=== PATIENT | female | born 1970 | race Caucasian/White ===

== ENCOUNTER 2018-06-02 09:34 | Outpatient (CLI) | payer OTHER, SELFPAY ==
--- NOTE | 2018-06-02 09:28 | DI.RAD_ITS ---
SYMPTOM/DIAGNOSIS: ACUTE RT WRIST PAIN RIGHT WRIST: Three views. No acute fracture or dislocation is identified. The joint spaces appear well maintained. The soft tissues are grossly unremarkable. IMPRESSION: No acute abnormality.
== END 2018-06-02 09:54 ==
PROVIDERS: PCP Nurse Practitioner Adult Health; Visit Provider Student in an Organized Health Care Education/Training Program
DX: M25.531 Pain in right wrist (principal)
CPT/HCPCS: 73110

== ENCOUNTER 2018-07-30 10:10 | Outpatient (REF) | payer OTHER, SELFPAY ==
--- NOTE | 2018-07-30 10:00 | PAPFT_PTH ---
PATIENT: Kya Lopez LOC: [facility] [place] U#:[id number] AGE/SX: 48/F ROOM: RE07/30/[address]: Sofy Pascual APRN : 1970 BED: DIS: 07/30/2018 SPEC #: [id number] RECD: 07/30/18 13:05 STATUS: RONNA RERadha #: [id number] JAZMIN: 07/30/18 10:[address]: Sofy Pascual DEPT: [facility] Cytology RECD BY: Delfin Cooper Tissues: 1 - CX/ENDOCX FOR PAP SMEARS Procedures: PAP THIN PREP/UVM Screening HPV DNA PROBE Comments: [id number]
== END 2018-07-30 10:30 ==
LOC: LBN 10:10
PROVIDERS: PCP Nurse Practitioner Adult Health; Visit Provider Nurse Practitioner Adult Health
DX: Z12.4 Encounter for screening for malignant neoplasm of cervix (principal); Z11.51 Encounter for screening for human papillomavirus (HPV)
CPT/HCPCS: 88142; 87624

== ENCOUNTER 2018-08-03 00:59 | Outpatient (CLI) | payer OTHER, SELFPAY ==
--- NOTE | 2018-08-03 13:00 | DI.MAMMO_ITS ---
SYMPTOMS/DIAGNOSIS: SCREENING, Z12.31 MAMMOGRAMS: Mammograms were interpreted according to the usual protocol including computer analysis with CAD system, tomosynthesis and C view imaging. Comparison is with the prior examinations. No suspicious masses or microcalcifications are seen. There is no definite evidence of malignancy. IMPRESSION: Negative mammogram. Routine screening is recommended. Category 1, breast density C. MQSA ASSESSMENT OF FINDINGS: Negative. Category 1. Patient will receive a letter notifying them of these results. Bi-RADS category C. The breasts are heterogeneously dense, which may obscure small masses.
== END 2018-08-03 01:19 ==
PROVIDERS: PCP Nurse Practitioner Adult Health; Visit Provider Nurse Practitioner Adult Health
DX: Z12.31 Encounter for screening mammogram for malignant neoplasm of breast (principal)
CPT/HCPCS: 77063; 77067

== ENCOUNTER 2018-08-04 01:15 | Outpatient (CLI) | payer OTHER, SELFPAY ==
--- NOTE | 2018-08-04 08:00 | DI.US_ITS ---
SYMPTOM/DIAGNOSIS: F/U MULTI NODULAR GOITER, E04.2 THYROID ULTRASOUND: Comparison is made with 06/17/17 and 07/16/17. The right lobe measures 4.7 by 2.6 by 1.5 cm. There is again seen a thick walled, complex, avascular nodule in the lower pole measuring 2.1 by 1.9 by 2.8 cm. This compares with 2.3 by 2.2 by 1.5 cm. There are two adjacent nodules seen in the mid pole of the right lobe of the thyroid gland, the larger measuring .9 by .6 by .6 cm. This is stable compared to 06/17/17. The second nodule measures 0.7 by 0.5 by 0.7 cm. It was not identified on the examination from 06/17/17. The left lobe measures 4.2 by 1.8 by 1.4 cm. It is homogeneous. No thyroid nodule is seen. The previously noted nodule seen on 06/17/17 is not identified on the current examination. The isthmus is within normal limits at .2 cm. IMPRESSION: Slight increase in size of the right lower lobe thyroid nodule since 06/17/17. Two solid nodules seen in the mid pole of the right lobe as described above.
== END 2018-08-04 01:35 ==
PROVIDERS: PCP Nurse Practitioner Adult Health; Visit Provider Otolaryngology
DX: E04.2 Nontoxic multinodular goiter (principal)
CPT/HCPCS: 76536

== ENCOUNTER 2018-08-12 12:01 | Outpatient (CLI) | payer OTHER, SELFPAY ==
[2018-08-12 13:15] LABS: TSH (W/Ref FT4) 0.04 uIU/mL (0.358-3.74)
[2018-08-12 13:53] LABS: FREE T4 1.17 ng/dL (0.76-1.46)
== END 2018-08-12 12:21 ==
PROVIDERS: PCP Nurse Practitioner Adult Health; Visit Provider Otolaryngology
DX: E04.2 Nontoxic multinodular goiter (principal)
CPT/HCPCS: 36415; 84439; 84443

== ENCOUNTER 2019-02-03 14:09 | Outpatient (CLI) | payer OTHER, SELFPAY ==
[2019-02-03 17:35] LABS: TSH (W/Ref FT4) 1.78 uIU/mL (0.36-3.74)
== END 2019-02-03 14:29 ==
PROVIDERS: PCP Nurse Practitioner Adult Health; Visit Provider Nurse Practitioner Adult Health
DX: E04.1 Nontoxic single thyroid nodule (principal); E04.2 Nontoxic multinodular goiter
CPT/HCPCS: 36415; 84443

== ENCOUNTER 2019-05-30 13:19 | Outpatient (REF) | payer OTHER, SELFPAY ==
--- NOTE | 2019-05-30 11:30 | ENDOMET_PTH ---
PATIENT: Kya Lopez LOC: [facility] U#:[id number] AGE/SX: 49/F ROOM: RE05/30/[address]: Yusef Moya MD : 1970 BED: DIS: 05/30/2019 SPEC #: [id number] RECD: 05/30/19 18:03 STATUS: RONNA RERadha #: [id number] JAZMIN: 05/30/19 11:[address]: Yusef Moya DEPT: Surgical Specimen RECD BY: Cecy Combs ENTERED: 05/30/19 18:03 SP TYPE: Endomet OTHR DR: Sofy Pascual APRN Tissues: 1 - ENDOMETRIUM BX/MARY Procedures: GROSS AND MICRO LEVEL 4 Comments: [id number]
== END 2019-05-30 13:39 ==
LOC: LBN 13:19
PROVIDERS: PCP Nurse Practitioner Adult Health; Visit Provider Obstetrics & Gynecology
DX: N85.01 Benign endometrial hyperplasia (principal); N83.8 Other noninflammatory disorders of ovary, fallopian tube and broad ligament; N93.8 Other specified abnormal uterine and vaginal bleeding
CPT/HCPCS: 88305

== ENCOUNTER 2019-06-02 02:47 | Outpatient (CLI) | payer OTHER, SELFPAY ==
--- NOTE | 2019-06-02 08:40 | DI.US_ITS ---
EXAM: US PELVIS AND TRANSVAGINAL CLINICAL HISTORY: Menorrhagia,N92.0 TECHNIQUE: Transabdominal and transvaginal exams were performed. COMPARISON: 11/22/15 US PELVIS AND TRANSVAGINAL FINDINGS: The uterus measures 7.8 x 4.1 x 3.9 cm. There is a question of a small fibroid near the anterior fund us. Nabothian cyst is noted in the cervix. The endometrial stripe measures 4 millimeters in thickness . No focal endometrial abnormality is seen. Small follicles are seen in both ovaries. No suspicious m asses or evidence of torsion. There is no evidence of hydronephrosis or free fluid. The bladder is un remarkable. IMPRESSION: Question of a small fundal fibroid. No visible endometrial abnormality. Ovaries are within normal l imits in appearance. DATA REPOSITORY:
== END 2019-06-02 03:07 ==
PROVIDERS: PCP Nurse Practitioner Adult Health; Visit Provider Nurse Practitioner Family
DX: N92.0 Excessive and frequent menstruation with regular cycle (principal); D25.9 Leiomyoma of uterus, unspecified
CPT/HCPCS: 76830; 76856

== ENCOUNTER 2019-10-20 21:11 | Emergency (ER) | payer OTHER, SELFPAY ==
[2019-10-20 21:15] VITALS: BP 151/88; PULSE 95; RESP 16; TEMP 36.4; O2SAT 99
--- NOTE | 2019-10-20 21:16 | ED.GENADUL_ITS ---
Discharge Plan Disposition Patient Disposition: HOME Condition: Good Discharge Details Chief Complaint: Urinary Clinical Impression: UTI (urinary tract infection) Primary Care Provider: Sofy Pascual ED Provider: El Rutledge Cornell Meds and New Rx's Prescriptions: New phenazopyridine 100 mg tablet 100 mg PO TID Qty: 4 RF: 0 nitrofurantoin macrocrystal 100 mg capsule 100 mg PO BID Qty: 8 RF: 0 Continued bupropion HCl 300 mg tablet extended release 24 hr 300 mg PO QAM Qty: 90 RF: 3 melatonin 3 mg tablet 6 mg PO HS PRNRF: 0 acetazolamide 500 mg capsule, extended release 500 mg PO DAILY Qty: 90 RF: 3 trazodone 50 mg tablet 50 mg PO HS PRN Qty: 90 RF: 3 clobetasol 0.05 % ointment 1 applic TP DAILY PRN (Reason: lichen) Qty: 15 RF: 0 fluticasone propionate [Flonase Allergy Relief] 50 mcg/actuation spray,suspension 2 spray MARY DAILY PRN (Reason: allergy symptoms) Qty: 9.9 RF: 2 sumatriptan succinate 100 mg tablet 100 mg PO ONCE Qty: 27 RF: 3 cyclobenzaprine 5 mg tablet 5 mg PO QHS PRN (Reason: muscle spasm) Qty: 30 RF: 5 ibuprofen 800 MG tablet 800 mg PO TID PRN PRNQty: 30 RF: 0 ranitidine HCl [Zantac 75] 75 MG tablet 75 mg PO HS RF: 0 Discharge Instructions Instructions: Urinary Tract Infection in Women (ED) Additional Instructions: Take Pyridium to treat the symptoms of frequency and urgency. Antibiotic as directed for 5 days. Follow-up with primary care next week if not better. Return to ED for back pain, vomiting, spiking fevers, other concerns. Referrals: Sofy Pascual, BEVERAGE SPECIALIST [Primary Care Provider] - Medical Decision Making Patient presenting with urinary tract symptoms. She looks well. She has no back pain, vomiting, fever. Urine dip positive for leukocytes and blood. Micro with red cells and white cells. Will treat with Pyridium and Macrobid. Follow- up with primary care next week if not better. Return to ED for back pain, vomiting, fever, worsening abdominal pain. Lab Data Lab results reviewed: Yes I reviewed the patient's lab results. HPI General Mode of arrival: ambulatory . Date/Time Provider Initiated Documentation: 10/20/19 21:15 . Limitations to Documentation: no limitations . Information obtained by: patient and RN notes reviewed . HPI Narrative: Patient presents to ED with urinary symptoms that she first noticed yesterday morning. Unable to contact primary care today because she was in conference all day. Tonight is having significant frequency, urgency, dysuria. She has not noticed hematuria. She has no back or flank pain. She does have suprapubic discomfort. She denies fever or chills. Related Data Home Medications Medication Instructions Recorded Confirmed ibuprofen 800 mg PO TID PRN PRN #30 tab 07/02/14 10/20/19 ranitidine HCl [Zantac 75] 75 mg PO HS 07/04/16 10/20/19 trazodone 50 mg tablet 50 mg PO HS PRN #90 tab 11/11/18 10/20/19 acetazolamide 500 mg 500 mg PO DAILY #90 tab-cap 01/12/19 10/20/19 capsule,extended release clobetasol 0.05 % topical ointment 1 applic TP DAILY PRN #15 gm 01/19/19 10/20/19 bupropion HCl 300 mg 24 hr tablet, 300 mg PO QAM #90 tab 02/07/19 10/20/19 extended release melatonin 3 mg tablet 6 mg PO HS PRN tab 08/10/19 10/20/19 fluticasone propionate 50 2 spray MARY DAILY PRN #9.9 ml 09/30/19 10/20/19 mcg/actuation nasal spray,suspension sumatriptan succinate 100 mg tablet 100 mg PO ONCE #27 tab-cap 10/03/19 10/20/19 cyclobenzaprine 5 mg tablet 5 mg PO QHS PRN #30 tab 10/13/19 10/20/19 nitrofurantoin macrocrystal 100 mg PO BID #8 cap 10/20/19 phenazopyridine 100 mg PO TID #4 tab 10/20/19 Previous Rx's Medication Instructions Recorded ibuprofen 800 mg PO TID PRN PRN #30 tab 07/02/14 trazodone 50 mg tablet 50 mg PO HS PRN #90 tab 11/11/18 acetazolamide 500 mg 500 mg PO DAILY #90 tab-cap 01/12/19 capsule,extended release clobetasol 0.05 % topical ointment 1 applic TP DAILY PRN #15 gm 01/19/19 bupropion HCl 300 mg 24 hr tablet, 300 mg PO QAM #90 tab 02/07/19 extended release fluticasone propionate 50 2 spray MARY DAILY PRN #9.9 ml 09/30/19 mcg/actuation nasal spray,suspension sumatriptan succinate 100 mg tablet 100 mg PO ONCE #27 tab-cap 10/03/19 cyclobenzaprine 5 mg tablet 5 mg PO QHS PRN #30 tab 10/13/19 nitrofurantoin macrocrystal 100 mg PO BID #8 cap 10/20/19 phenazopyridine 100 mg PO TID #4 tab 10/20/19 Allergies Allergy/AdvReac Type Severity Reaction Status Date / Time No Known Drug Allergies Allergy Verified 09/22/19 09:35 Review of Systems Narrative: As documented in HPI otherwise negative as below. Const: no fever, chills, weakness GI: no nausea, vomiting, diarrhea PFSH Medical History Depressive disorder (Chronic 11/17/12) Seasonal component (worse in winter) IIH (idiopathic intracranial hypertension) (Chronic 07/12/14) Dx'ed ~2010 ortiz spots in vision--Dr. Purvis of neuro and Dr. Luiz mckeon (fluoroc angiography & retinal scan) Migraine headache without aura (Chronic 10/10/14) Multinodular goiter (Chronic 07/09/17) 06/2012 ultrasound small succentimeter nodules and cysts throughout the thyroid Right hand tendonitis (Resolved) Thyroid nodule (Chronic 05/04/17) 07/16/17 ultasound guided fine needle aspiration: -Benign cystic/hemmorrhagic thyroid follicular nodule. Surgical History Acromioplasty (07/04/16) RT SHOULDER WITH EXCISION CALCIFIC DEPOSIT/DR. 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 [employer] Pets and animals: Yes Pets and animals: dog(s) Sexually active: Yes Current gender identity: female What type of physical activity do you participate in: walking Duration: 30-45 minutes/day Frequency: 3-4 times per week Seatbelt use: always Helmet use: Yes Drive intox or ride w/intox dray driver: No Water heater temp set <120 deg: Yes Working smoke detector in home: Yes Fire extinguisher in home: Yes Carbon monox detector in home: Yes Firearms in home: Yes Firearms unloaded and locked: Yes Do you feel safe at home: Yes Do you feel safe in your relationship?: Yes Victim of physical abuse: No Victim of emotional abuse: No Victim of sexual abuse: No Female Reproductive History Menstrual control method: progestin IUCD (Mirena IUD inserted 07/05/19 Lot # [id number] July 2021) and permanent sterilization (BTL) History History 3 Para 3 Hx # Term Pregnancies Multiple births Hx # Pregnancies Ectopic pregnancies AB induced Hx Number of Living Children AB spontaneous Exam Narrative Exam Narrative: Vitals: Afebrile. Elevated blood pressure otherwise normal vitals and normal ro om air pulse ox. Const: WDWN female in NAD. HEENT: NC/AT. Normal facial exam. Eyes: Normal conjunctiva and sclera. Neck: Supple. Trachea midline. Lungs: Normal respiratory effort. GI: Soft. NT/ND. No guarding or rebound. Back: No CVAT Neuro: A+O x 3. Normal speech, mentation, gait. Cranial nerves II - XII grossly intact. No gross motor or sensory deficit.
[2019-10-20 21:37] LABS: Bilirubin Negative (Negative); Blood Large (Negative); Clarity Sl Cloudy (Clear); Glucose Negative (Negative); Ketones Negative (Negative); Leukocyte Esterase Moderate (Negative); Nitrite Negative (Negative); Specific Gravity 1.015 (1.005-1.025)
[2019-10-20 21:46] LABS: Bacteria Moderate HPF (Negative); C & S Indicated? Yes; Casts Negative LPF (Negative); Crystals Negative HPF (Negative); Epithelial Cells Few HPF (Negative); Mucus Negative (Negative); Other Cells Few Renal (Negative); RBC >50 HPF (0-2); WBC >50 HPF (0-5)
[2019-10-20] MEDS: Phenazopyridine 100 MG TAB, 2 TABS/BTL PO (21:49)
[2019-10-20] MEDS: MacroBID 100 MG CAP, 2 CAPS/BTL PO (21:49)
== END 2019-10-20 21:47 | disposition home or self-care (01) ==
PROVIDERS: Emergency Provider Emergency Medicine; PCP Nurse Practitioner Adult Health
DX: R39.0 Extravasation of urine (principal)
CPT/HCPCS: 87077; 99283; 81003; 81015; 87086; 87186

== ENCOUNTER 2019-11-25 18:51 | Outpatient (REF) | payer OTHER, SELFPAY | END 2019-11-25 19:11 | LOC: LBN 18:51 | PROVIDERS: PCP Nurse Practitioner Adult Health; Visit Provider Family Medicine | DX: R30.0 Dysuria (principal) | CPT/HCPCS: 87077; 87086; 87186 ==

== ENCOUNTER 2019-11-30 13:35 | Outpatient (CLI) | payer OTHER, SELFPAY ==
--- NOTE | 2019-11-30 14:15 | DI.RAD_ITS ---
EXAM: XR FOOT LT COMPLETE CLINICAL HISTORY: h/o plantar fasc--suspect bn spur M79.672 PAIN LT FOOT TECHNIQUE: COMPARISON: No exams were available for comparison FINDINGS: Three views were obtained. There is a small osteophyte at the site of attachment of the plantar fasc ia on the calcaneus. No other bony or soft tissue abnormality seen. IMPRESSION: RADIATION DOSE DELIVERED: Total DLP
== END 2019-11-30 13:55 ==
PROVIDERS: PCP Nurse Practitioner Adult Health; Visit Provider Nurse Practitioner Adult Health
DX: M79.672 Pain in left foot (principal); M25.775 Osteophyte, left foot
CPT/HCPCS: 73630

== ENCOUNTER 2019-12-01 13:15 | Outpatient (CLI) | payer OTHER, SELFPAY ==
[2019-12-01 15:54] LABS: Anion Gap 14.6 mmol/L (3-11); BUN 15 mg/dL (7-18); CO2 20.4 mmol/L (21.0-32.0); CREATININE 0.92 mg/dL (0.55-1.02); Calcium 8.9 mg/dL (8.5-10.1); Chloride 106 mmol/L (98-107); Glucose 75 mg/dL (74-106); Potassium 3.8 mmol/L (3.5-5.1); Sodium 141 mmol/L (136-145); TSH (W/Ref FT4) 1.68 uIU/mL (0.36-3.74)
[2019-12-01 16:08] LABS: Calculated LDL 137 mg/dL (<100); Cholesterol 230 mg/dL (<200); HDL Cholesterol 68 mg/dL (40-60); Triglyceride 128 mg/dL (<150)
== END 2019-12-01 13:35 ==
PROVIDERS: PCP Nurse Practitioner Adult Health; Visit Provider Nurse Practitioner Adult Health
DX: Z13.220 Encounter for screening for lipoid disorders (principal); E05.20 Thyrotoxicosis with toxic multinodular goiter without thyrotoxic crisis or storm
CPT/HCPCS: 36415; 80048; 80061; 84443

== ENCOUNTER 2019-12-07 02:59 | Outpatient (CLI) | payer OTHER, SELFPAY ==
--- NOTE | 2019-12-07 08:55 | DI.MAMMO_ITS ---
EXAM: MG MAMMO SCREENING CLINICAL HISTORY: screening, Z12.39 TECHNIQUE: Bilateral full field digital CC and MLO mammographic images were obtained with 3D tomosyn thesis and utilizing computer aided detection (CAD). COMPARISON: Available for comparison. FINDINGS: Masses/Architectural Distortion: There is asymmetric breast tissue in the upper central left breast o n the MLO view. Microcalcifications: No suspicious pleomorphic-type are seen. Skin Thickening/Nipple Retraction: None. IMPRESSION: 1. Asymmetric breast tissue in the upper central left breast on the MLO view. 2. Further evaluation with spot compression view and ultrasound is recommended. BI-RADS Category 0 - Assessment Incomplete: Need additional imaging evaluation Breast Density - Category C - Heterogeneously dense The mammogram demonstrates the patient's breast tissue is dense. Dense breast tissue is very common a nd is not abnormal but dense breast tissue can make it harder to find cancer on a mammogram. Also, de nse breast tissue may increase their breast cancer risk. This information about the [facility] was provided to the patient to raise their awareness. Use this report when you speak wi th the patient about their risks for breast cancer, which includes their family history. At that time , you may recommend for more screening tests (Ultrasound or MRI) as they might be useful based on the ir risk. A negative radiographic report should not delay biopsy if a dominant or clinically suspicious mass is present. Up to ten percent of cancers are not identified on mammography. A negative report may reinforce clinical impression. Adenosis and dense breasts may obscure an underlying neoplasm. False positive reports average 6 to 10%. Patient will receive a letter notifying them of these results.
== END 2019-12-07 03:19 ==
PROVIDERS: PCP Nurse Practitioner Adult Health; Visit Provider Nurse Practitioner Adult Health
DX: Z12.31 Encounter for screening mammogram for malignant neoplasm of breast (principal); R92.2 Inconclusive mammogram
CPT/HCPCS: 77063; 77067

== ENCOUNTER 2019-12-20 00:40 | Outpatient (CLI) | payer OTHER, SELFPAY ==
--- NOTE | 2019-12-20 | DI.US_ITS ---
EXAM: MG MAMMO SCREEN CALL BACK UNI CLINICAL HISTORY: F/U MAMMO, ASYMMETRIC BREAST TISSUE UPPER CENTRAL LT BREAST ON MLO TECHNIQUE: Mammograms were interpreted according to the usual protocol including computer analysis w [employer] CAD system, tomosynthesis and C-view imaging. COMPARISON: FINDINGS: Additional mammographic views of the left breast and left breast ultrasound are interpreted in conjun ction. These examinations were obtained to evaluate questionable area of asymmetric density seen on recent mammogram. Additional mammographic views fail to show a discrete mass. Breast ultrasound modest[place] ws no evidence of mass or cyst. IMPRESSION: No specific evidence of malignancy at this time. Follow-up unilateral left breast mammogram recommen ded in 6 months BI-RADS Cat 3 - 6 month - Probably Benign Finding: Recommend follow-up mammography in 6 months Breast Density - Category C - Heterogeneously dense
--- NOTE | 2019-12-20 09:18 | DI.MAMMO_ITS ---
EXAM: MG MAMMO SCREEN CALL BACK UNI CLINICAL HISTORY: F/U MAMMO, ASYMMETRIC BREAST TISSUE UPPER CENTRAL LT BREAST ON MLO TECHNIQUE: Mammograms were interpreted according to the usual protocol including computer analysis w [employer] CAD system, tomosynthesis and C-view imaging. COMPARISON: FINDINGS: Additional mammographic views of the left breast and left breast ultrasound are interpreted in conjun ction. These examinations were obtained to evaluate questionable area of asymmetric density seen on recent mammogram. Additional mammographic views fail to show a discrete mass. Breast ultrasound modesta ws no evidence of mass or cyst. IMPRESSION: No specific evidence of malignancy at this time. Follow-up unilateral left breast mammogram recommen ded in 6 months BI-RADS Cat 3 - 6 month - Probably Benign Finding: Recommend follow-up mammography in 6 months Breast Density - Category C - Heterogeneously dense
== END 2019-12-20 01:00 ==
PROVIDERS: PCP Nurse Practitioner Adult Health; Visit Provider Nurse Practitioner Adult Health
DX: R92.8 Other abnormal and inconclusive findings on diagnostic imaging of breast (principal); R92.2 Inconclusive mammogram
CPT/HCPCS: 76642; 77063; 77067

== ENCOUNTER 2020-02-01 10:56 | Outpatient (CLI) | payer OTHER, SELFPAY ==
--- NOTE | 2020-02-01 10:30 | DI.RAD_ITS ---
EXAM: XR FOOT LT COMPLETE CLINICAL HISTORY: pain in left foot TECHNIQUE: COMPARISON: CR XR FOOT LT COMPLETE from 11/30/2019 FINDINGS: Three views were obtained. Bony alignment appears within normal limits. There is a small osteophyte of site of attachment of the plantar fascia on the calcaneus. No other bony or soft tissue abnormal ity seen. IMPRESSION: RADIATION DOSE DELIVERED: Total DLP
== END 2020-02-01 11:16 ==
PROVIDERS: PCP Nurse Practitioner Adult Health; Referring Provider Nurse Practitioner Adult Health; Visit Provider Student in an Organized Health Care Education/Training Program
DX: M79.672 Pain in left foot (principal); M25.775 Osteophyte, left foot
CPT/HCPCS: 73630

== ENCOUNTER 2020-02-03 03:10 | Outpatient (CLI) | payer OTHER, SELFPAY ==
--- NOTE | 2020-02-03 06:45 | DI.MRI_ITS ---
EXAM: MR LOWER JOINT LT WO CLINICAL HISTORY: Calcaneus stress fx,M84.376A. TECHNIQUE: Multiplanar multisequence MRI was performed. COMPARISON: No exams were available for comparison FINDINGS: MR examination foot was performed according to the usual protocol. Bones: Bony alignment appears within normal limits. There is a linear cleft of the mid portion of the calcaneus which is vertical in orientation, there m ay be slight marrow edema associated with this site, this may represent a nondisplaced stress fractur e but are probably more likely to represent a developmental cleft with minimal stress reaction. Note is also made of mildly increased signal in the calcaneus adjacent to the plantar fascia attachme nt. Tendons: There is mildly abnormal signal in the Achilles tendon with slight associated thickening jus t proximal to the calcaneal attachment. No evidence of a tear. There is mildly abnormal signal in plantar fascia adjacent to its calcaneal attachment with mild thic kening. Minimal fat edema also noted at this site. Findings consistent with mild plantar fasciitis. Otherwise the tendons of the ankle region appear intact with no evidence tear or displacement. No si gnificant tendinosis identified. Ligaments: Bony alignment is within normal limits. No ligamentous injury of the region of the ankle. IMPRESSION: Findings suggesting mild plantar fasciitis with abnormal signal of the proximal plantar fascia and ad jacent calcaneal marrow. Mild Achilles tendinosis noted. Question developmental cleft of the midportion of the calcaneus versus stress fracture, slight associ ated marrow edema is noted at this site. Please see above discussion. DATA REPOSITORY:
== END 2020-02-03 03:30 ==
PROVIDERS: PCP Nurse Practitioner Adult Health; Visit Provider Student in an Organized Health Care Education/Training Program
DX: M72.2 Plantar fascial fibromatosis; M76.62 Achilles tendinitis, left leg; M85.872 Other specified disorders of bone density and structure, left ankle and foot
CPT/HCPCS: 73721

== ENCOUNTER 2020-10-26 07:15 | Day surgery (SDC) | payer OTHER, SELFPAY ==
--- NOTE | 2020-10-25 17:21 | HPE_ITS ---
Date of service: 10/25/20 Time of Service: 17:21 History of Present Illness History of Present Illness Chief Complaint: plantar fascitis, recalcitrant, left foot Narrative: 50 YO female with a 1 year history of left plantar fascitis th at has failed to resolve inspit of active treatments with steroids, NSAID, Orthotic management etc. The pain is interfering with daily activity and shoe gear and quality of life. PFS Medical History Depressive disorder (11/17/12) RX Wellbutrin; Seasonal component (worse in winter) Heartburn Failed Ranitidine; Omeprazole 20mg daily effective IIH (idiopathic intracranial hypertension) (07/12/14) Dx'ed ~2010 ortiz spots in vision--Dr. Purvis of neuro and Dr. Luiz mckeon (fluoroc angiography & retinal scan) F/U with Dr. Dyson Migraine headache without aura (10/10/14) Multinodular goiter (07/09/17) 06/2012 ultrasound small succentimeter nodules and cysts throughout the thyroid Plantar fasciitis of left foot Right hand tendonitis Thyroid nodule (05/04/17) 07/16/17 ultasound guided fine needle aspiration: -Benign cystic/hemmorrhagic thyroid follicular nodule. Surgical History Acromioplasty (07/04/16) RT SHOULDER WITH EXCISION CALCIFIC DEPOSIT/DR. AZEVEDO Ligation of fallopian tube Tonsillectomy and adenoidectomy Age 10 yrs Family History Mother Essential hypertension Hyperlipidemia Headache Sister Hyperthyroidism Headache Daughter Hyperthyroidism Headache Grandmother Hyperthyroidism Maternal Aunt Hyperthyroidism Maternal Aunt Hyperthyroidism Social History Smoking/Tobacco Use Status: Never Smoking risk assessment performed?: Yes Alcohol Intake: never Drug use: Never Substance use type: does not use Caregiver/Support person: No Household members: spouse Number of Children: 3 Communication Needs: None Education Level: college Details: BA Science Do you need help understanding health information?: Never 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 Pets and animals: Yes Pets and animals: dog(s) Sexually active: Yes Current gender identity: female What is your relationship status?: How often do you talk on the phone with friends or family?: three or more times per week How often do you get together with friends or relatives?: twice per week How often do you attend rastafari or episcopalian services?: decline to answer Panel score (0-1 are the most socially isolated patients): 2 What type of physical activity do you participate in: walking Duration: 15-30 minutes/day Frequency: 5-6 times per week Chrystal/Protestant: Gnosticist Special chrystal needs: No Seatbelt use: always Helmet use: Yes Drive intox or ride w/intox fast food delivery driver: No Water heater temp set <120 deg: Yes Working smoke detector in home: Yes Fire extinguisher in home: Yes Carbon monox detector in home: Yes Firearms in home: Yes Firearms unloaded and locked: Yes Do you feel safe at home: Yes Do you feel safe in your relationship?: Yes Victim of physical abuse: No Victim of emotional abuse: No Victim of sexual abuse: No Female Reproductive History Menstrual control method: progestin IUCD (Mirena IUD inserted 07/05/19 Lot # [id number] July 2021) and permanent sterilization (BTL) History History 3 Para 3 Hx # Term Pregnancies Multiple births Hx # Pregnancies Ectopic pregnancies AB induced Hx Number of Living Children AB spontaneous Meds Allergies and Home Medications Allergies Allergy/AdvReac Type Severity Reaction Status Date / Time No Known Drug Allergies Allergy Verified 05/07/20 11:52 Home Medications Medication Instructions Recorded Confirmed Type ibuprofen 800 mg PO TID PRN PRN #30 tab 07/02/14 10/24/20 Rx melatonin 3 mg tablet 6 mg PO HS PRN tab 08/10/19 10/24/20 History fluticasone propionate 50 2 spray MARY DAILY PRN #9.9 ml 09/30/19 10/24/20 Rx mcg/actuation nasal spray,suspension sumatriptan succinate 100 mg tablet 100 mg PO ONCE #27 tab-cap 10/03/19 10/24/20 Rx cyclobenzaprine 5 mg tablet 5 mg PO QHS PRN #30 tab 10/13/19 10/24/20 Rx acetazolamide 500 mg 1,000 mg PO DAILY #180 tab-cap 11/08/19 10/24/20 Rx capsule,extended release bupropion HCl 300 mg 24 hr tablet, 300 mg PO QAM #90 tab 11/30/19 10/24/20 Rx extended release clobetasol 0.05 % topical ointment 1 applic TP DAILY PRN #15 gm 07/30/20 10/24/20 Rx trazodone 50 mg tablet 50 mg PO HS PRN #90 tab 09/27/20 10/24/20 Rx omeprazole 20 mg PO HS 10/24/20 10/24/20 History Exam Narrative Exam Narrative: 50 yo female in NAD Heads Normo cephalic eyes Madelaine hearing is adequate Heart had RRR, no murmurs noted Lung chavez were clear Abdomen is soft, BS x 4 Peripheral pulses 2/4, no edema Muslce gps 5/5 Skeletal exam positive for pain with palpation of the left heel, plantar medial aspect and along the medial slip of the plantar fascia Neurologically, in tact Assessment: recalcitrant plantar fascitis left Plan: EPF to the left heel. She understands potential risks and complications including pain, scarring, neve injury, infection, persistent pain requiring additonal surgical procedures. All questions have been answered in detail. No promises made to the final outcome of surgery.
[2020-10-26 07:26] VITALS: BP 121/83; PULSE 79; RESP 16; TEMP 36.4; O2SAT 99
[2020-10-26] MEDS: Lactated Ringers 1,000 ML 80 ML IV (07:57)
--- NOTE | 2020-10-26 08:55 | W.ANESPRE ---
General Info Date of Service Date Performed: 10/26/20 Height: 5 ft 5.75 in Weight: 103.1 kg Body Mass Index (BMI): 36.9 Surgical Procedure: Operation Date: 10/26/20 08:40 Proposed Procedures Side Surgeon p Endoscopic plantar release Lt Foot Left Alessio Ko DPM Meds Allergies and Home Medications Allergies Allergy/AdvReac Type Severity Reaction Status Date / Time No Known Drug Allergies Allergy Verified 10/26/20 07:34 Home Medication Medication Instructions Recorded ibuprofen 800 mg PO TID PRN PRN #30 tab 07/02/14 melatonin 3 mg tablet 6 mg PO HS PRN tab 08/10/19 fluticasone propionate 50 2 spray MARY DAILY PRN #9.9 ml 09/30/19 mcg/actuation nasal spray,suspension sumatriptan succinate 100 mg tablet 100 mg PO ONCE #27 tab-cap 10/03/19 cyclobenzaprine 5 mg tablet 5 mg PO QHS PRN #30 tab 10/13/19 acetazolamide 500 mg 1,000 mg PO DAILY #180 tab-cap 11/08/19 capsule,extended release bupropion HCl 300 mg 24 hr tablet, 300 mg PO QAM #90 tab 11/30/19 extended release clobetasol 0.05 % topical ointment 1 applic TP DAILY PRN #15 gm 07/30/20 trazodone 50 mg tablet 50 mg PO HS PRN #90 tab 09/27/20 omeprazole 20 mg PO HS 10/24/20 Current Visit Medications: Current Medications Generic Name Dose Route Start Last Admin Trade Name Freq PRN Reason Stop Dose Admin Sodium Chloride 500 mls @ 0 mls/hr 10/26/20 06:00 Saline 500ml Bag IV PRN PRN As Directed Cefazolin Sodium/Dextrose 2 gm in 50 mls @ 100 mls/hr 10/26/20 06:00 Ancef Duplex IVPB PREOP PEDRO Ringer's Solution 1,000 mls @ 80 mls/hr 10/26/20 06:00 10/26/20 07:57 IV 11/24/20 23:59 80 mls/hr INFUSION PEDRO Administration IV Miscellaneous Supplies 1 each 10/26/20 06:00 Iv Access IV DIRECTED PEDRO IV Miscellaneous Supplies 1 each 10/26/20 06:00 Iv Access IV 11/24/20 23:59 DIRECTED PEDRO Povidone Iodine 0 ml 10/26/20 06:00 Povidone-Iodine Soln. 118 Ml Btl TP DIRECTED PEDRO Sodium Chloride 0 ml 10/26/20 06:00 Normal Saline Flush 10 Ml Syr IVP PRN PRN Sodium Chloride 0 ml 10/26/20 06:00 Normal Saline Flush 10 Ml Syr IV 11/24/20 23:59 PRN PRN Sodium Chloride 0 ml 10/26/20 06:00 Normal Saline 10 Ml Vial IJ 11/24/20 23:59 DIRECTED PRN Sterile Water 0 ml 10/26/20 06:00 Water,Injection,Sterile 10 Ml Vial IJ 11/24/20 23:59 DIRECTED PRN PFSH Active Problems Active Problems: Problem Status Onset Code Menorrhagia N92.0 Tension headache G44.209 Neck stiffness M43.6 Subclinical hyperthyroidism E05.90 BI-RADS category 3 mammogram result R92.8 Stress fracture of calcaneus ~09/2019 M84.376A Encounter for screening for other viral diseases Z11.59 Plantar fasciitis of left foot M72.2 Heartburn R12 Thyroid nodule 05/04/17 E04.1 Multinodular goiter 07/09/17 E04.2 Migraine headache without aura 10/10/14 G43.009 IIH (idiopathic intracranial hypertension) 07/12/14 G93.2 Depressive disorder 11/17/12 F32.9 Medical History Medical History Depressive disorder (11/17/12) RX Wellbutrin; Seasonal component (worse in winter) Heartburn Failed Ranitidine; Omeprazole 20mg daily effective IIH (idiopathic intracranial hypertension) (07/12/14) Dx'ed ~2010 ortiz spots in vision--Dr. Purvis of neuro and Dr. Luiz mckeon (fluoroc angiography & retinal scan) F/U with Dr. Dyson Migraine headache without aura (10/10/14) Multinodular goiter (07/09/17) 06/2012 ultrasound small succentimeter nodules and cysts throughout the thyroid Plantar fasciitis of left foot Right hand tendonitis Thyroid nodule (05/04/17) 07/16/17 ultasound guided fine needle aspiration: -Benign cystic/hemmorrhagic thyroid follicular nodule. Surgical History Surgical History (Updated 10/26/20 @ 07:33 by Kya Chadwick RN) Acromioplasty (07/04/16) RT SHOULDER WITH EXCISION CALCIFIC DEPOSIT/DR. AZEVEDO B/L Ligation of fallopian tube Tonsillectomy and adenoidectomy Age 10 yrs Tobacco Smoking/Tobacco Use Status: Never Alcohol Alcohol Intake: never Substance Use Substance use: Never Substance use type: does not use Prental History History 3 Para 3 Hx # Term Pregnancies Multiple births Hx # Pregnancies Ectopic pregnancies AB induced Hx Number of Living Children AB spontaneous Vital Signs and Lab Results Vital Signs Most Recent Vital Signs in EMR: Most Recent Vital Signs Temp Pulse Resp BP Pulse Ox 36.4 C L 79 16 121/83 99 10/26/20 07:26 10/26/20 07:26 10/26/20 07:26 10/26/20 07:26 10/26/20 07:26 Point of Care Results Point of Care Results: POC- Test(urine) Negative 10/26/20 08:12 Lab Results Blood Type / Crossmatch: No Data to Display Complete Blood Count: No Data to Display Complete Metabolic Panel: No Data to Display Liver Function Panel: No Data to Display Coagulation Panel: No Data to Display Cardiac Panel: No Data to Display Arterial Blood Gas: No Data to Display Venous Blood Gas: No Data to Display Pancreas Panel: No Data to Display Thyroid Panel: No Data to Display Infectious Disease: No Data to Display Blood Cultures: No Data to Display Toxicology Panel: No Data to Display Panel: No Data to Display Anesthesia Assessment and Plan Anesthesia History Personal History: No History of Anesthesia Complications Family History: No Family History of Anesthesia Complications Exercise Tolerance Exercise Tolerance: Metabolic Equivalents>4 Pertinent Negatives Pertinent Negatives: No Symptoms of GERD, No Major Cardiovascular Symptoms or Complaints, No Major Pulmonary Symptoms or Complaints and No History of CVA/TIA Cardiac & Pulmonary Exam Cardiac Exam: Normal S1/S2 Heart Sounds Pulmonary Exam: Clear Bilateral Breath Sounds Airway Exam Known Difficult Airway: No Mallampati Class: 2 Mouth Opening: Normal (> 3cm) Thyromental Distance: Greater than 3 cm Neck Range of Motion: Full ROM Neck Circumference: Normal Teeth Condition: Normal Dentition ASA Classification ASA Score: ASA 2 Emergency Case?: No NPO Status NPO Status: NPO Clears >2 hours, Solids >8 hours Status Status: Negative HCG Anesthesia Plan Resuscitation Status: Full Code Anesthesia Technique: General Anesthesia Airway Planned: Natural Airway Monitors Used: Standard Monitors
[2020-10-26 08:56] VITALS: BMI 36.9
[2020-10-26] MEDS: ceFAZolin 2 GM/50 ML BAG IVPB (09:29)
[2020-10-26] MEDS: Lidocaine 1% Multi-Dose 50 ML VIAL (09:30)
[2020-10-26] MEDS: Bupivacaine 0.5% Pres-Free 30 ML VIAL (09:30)
[2020-10-26] MEDS: Dexamethasone 4 MG/ML VIAL (10:01)
--- NOTE | 2020-10-26 10:14 | W.PM.DSUDISC ---
Discharge Plan Disposition Patient Disposition: HOME Condition: Good Discharge Details Reason For Visit: EPF, left plantar fascia Attending Provider: Alessio Ko Primary Care Provider: Sofy Pascual Home Meds and New Rx's Prescriptions: New oxycodone-acetaminophen 5-325 mg tablet 1 tab PO Q6H PRN (Reason: pain) Qty: 10 RF: 0 oxycodone-acetaminophen 5-325 mg tablet 1 tab PO Q6H PRNQty: 10 RF: 0 No Action melatonin 3 mg tablet 6 mg PO HS PRNRF: 0 bupropion HCl 300 mg tablet extended release 24 hr 300 mg PO QAM Qty: 90 RF: 3 acetazolamide 500 mg capsule, extended release 1,000 mg PO DAILY Qty: 180 RF: 3 fluticasone propionate [Flonase Allergy Relief] 50 mcg/actuation spray,suspension 2 spray MARY DAILY PRN (Reason: allergy symptoms) Qty: 9.9 RF: 2 sumatriptan succinate 100 mg tablet 100 mg PO ONCE Qty: 27 RF: 3 cyclobenzaprine 5 mg tablet 5 mg PO QHS PRN (Reason: muscle spasm) Qty: 30 RF: 5 clobetasol 0.05 % ointment 1 applic TP DAILY PRN (Reason: lichen) Qty: 15 RF: 0 trazodone 50 mg tablet 50 mg PO HS PRN Qty: 90 RF: 3 ibuprofen 800 MG tablet 800 mg PO TID PRN PRNQty: 30 RF: 0 omeprazole 20 mg capsule,delayed release(DR/EC) 20 mg PO HS RF: 0 Discharge Instructions Activity:: Activity as Tolerated Remove Dressings/Wound Care:: Do Not Remove Shower/Bathe:: Cover Diet:: Normal Diet Discharge Orders Discharge Orders: Discharge Order (Routine); Ordered 10/26/20 Ordered By: Alessio Ko DS: Diagnosis Discharge Diagnosis (1) Plantar fasciitis of left foot: Status: Acute
[2020-10-26 10:18] VITALS: BP 102/68; PULSE 72; RESP 16; TEMP 36.3; O2SAT 95
--- NOTE | 2020-10-26 10:18 | W.ANESPOSTOP ---
Postoperative Evaluation Date, Time and Location Date Performed: 10/26/20 Time Performed: 10:18 Patient Location: Day Surgery Unit Vital Signs Most Recent Imported Vital Signs: Most Recent Vital Signs Temp Pulse Resp BP Pulse Ox 36.4 C L 79 16 121/83 99 10/26/20 07:26 10/26/20 07:26 10/26/20 07:10/26/20 07:10/26/20 07:26 Most Recent Manually Entered Vital Signs: Adult Blood Pressure: 102/68 Heart Rate: 73 Respirations: 16 Oxygen Saturation (%): 96 Temperature (C): 36.3 C Pain Score (0-10 Scale): 0 Pain Score Most Recent Pain Score: Most Recent Pain Score Pain Level 8 10/26/20 07:26 Assessment Mental Status: Awake (Alert & Oriented to Patient Baseline) Airway and Respiratory Function: Patent airway with normal (patient baseline) respiratory exam Cardiovascular Function: Hemodynamically Stable Hydration Status: Adequately Hydrated Nausea & Vomiting: No Nausea or Vomiting Pain: Pt. Denies Any Pain Peripheral Nerve Block: Other (Intraop local)
[2020-10-26 10:21] VITALS: BP 102/68; PULSE 73; RESP 16; TEMPC 36.3; O2SAT 96
[2020-10-26 10:53] VITALS: BP 111/76; PULSE 67; RESP 17; TEMP 36.3; O2SAT 98
--- NOTE | 2020-10-26 11:35 | W.PM.OP ---
Date of service: 10/26/20 Time of Service: 11:35 Operative Note Operative Note DATE OF PROCEDURE: 10/26/20 PRE-OP DIAGNOSIS: recalcitrant plantar fascitis left foot POST-OP DIAGNOSIS: same PROCEDURE: EPF left foot SURGEON: Alessio Ko Refer to Anesthesia Record ESTIMATED BLOOD LOSS: 0 PATHOLOGY: none sent TOURNIQUET TIME: 30 COMPLICATIONS: None Patient was transported to: same day Patient's condition: stable Indications: 50 YO female with recalcitrant plantar fascitis for plantar fascial release. Risks and complications have been reviewed including the potential for pain, scarring, infection, nerve damage, lateral foot pain, persistent plantar fascitis. Informed consent has been obtained. Procedure Description: Kya was brought into the OR suite, time out was performed for safe surgery, the left foot was anesthsized with 20cc, 50:50 mixture 1%Lidocaine plani and 0.5% Marcaine plain. The left foot was ensanguinated and a well padded ankle tournique inflated to 250mmHg. Attention was directed to the left heel where a 1cm vertical incision was made with a #11 blade just above the plantrar fascia. Curved hemostate was then used to find the medial edge of the fascia and a fascial elevatior used to creat a tunnel. The obturator was then set exiting laterally. The scope was then inserted and the fascia was clearly identiifed. A picture was obtained. With the hook blade, the medial 1/3 of the plantar fascia was incised. Residual fibers were released with a triangle blade. The wound/cannular was irrigated with NS and trhe instrucmentaion removed. Finger palpation over the plantar fascia indicated that a release was achieved. The incisons were closed with 4/o Nylon. $ mgs of Dexamethasone phoosphate infused deeply in to the wound. Xerofor, fluff, Kerlix gauze applied. Tourniquet was released and vascularity returned immediately. She will be followed by myself next week.
== END 2020-10-26 11:11 | disposition home or self-care (01) ==
PROVIDERS: PCP Nurse Practitioner Adult Health; Visit Provider Podiatrist
PROC: (CPT 29893; principal; 2020-10-26 08:30)
DX: M72.2 Plantar fascial fibromatosis (principal); E04.2 Nontoxic multinodular goiter; G43.009 Migraine without aura, not intractable, without status migrainosus
CPT/HCPCS: 29893; 81025; J0690; J1100; J2001; J2405

== ENCOUNTER 2020-11-02 19:48 | Outpatient (REF) | payer OTHER, SELFPAY | END 2020-11-02 19:49 | disposition home or self-care (01) | LOC: NCHCN 19:48 | PROVIDERS: PCP Nurse Practitioner Adult Health; Visit Provider Nurse Practitioner Adult Health | DX: N39.0 Urinary tract infection, site not specified (principal) | CPT/HCPCS: 87077; 87086; 87186 ==

== ENCOUNTER 2020-11-08 02:08 | Outpatient (CLI) | payer OTHER, SELFPAY ==
--- NOTE | 2020-11-08 | DI.US_ITS ---
Exam(s) US THYROID EXAM: US THYROID CLINICAL HISTORY: F/U MULTI NODULAR GOITER,E04.2. TECHNIQUE: Ultrasound thyroid performed using standard protocol. COMPARISON: Prior ultrasound examination August 2018 was reviewed. This patient subsequently underwent right lobe FNA, apparently ???negative???, according to the patient. This is a routine follow-up. She does not feel that things are increasing in size. FINDINGS: Both thyroid lobes exhibit upper normal size and there is no thickening of the isthmus. RIGHT THYROID LOBE: Measures 1.4 cm AP x 1.7 cm wide x 4.4 cm craniocaudal LEFT THYROID LOBE: Measures 1.4 cm AP x 1.4 wide x 4.5 cm craniocaudal ISTHMUS: Normal thickness. There are no nodules in the isthmus. Significant nodules are as follows: RIGHT THYROID LOBE: Nodule #1. This is located inferiorly and is the dominant nodule in the right lobe and the nodule wh ich underwent previous FNA. Size: 1.9 cm x 1.9 cm x 3.3 cm (craniocaudal) not taller than wider Composition: Mixed klkrc-vyeosr-6 point Echogenicity: Solid components of the nodular are isoechoic= 1 point Shape: Not truly taller than wider-therefore 0 points Margin: Smooth/lobulated but eccentric-therefore 3 points Echogenic Foci: This nodule does contain some punctate echogenic foci which are independent of the ba ck julio of the cystic components therein-therefore 3 points. Total Points for this nodule: 8 ACR Ti-Rads Category: TR5 Also since this nodule is greater than 1.5 cm it should undergo FNA if it has increased in size from the prior study. Nodule #2: Slightly higher up mid level of the gland Size: 0.8 cm x 0.5 cm x 0.6 cm Composition: Solid-2 points Echogenicity: Mildly hypoechoic compared to surrounding parenchyma-2 Shape: Wider than taller- 0 points Margin: Smooth-0 points Echogenic Foci: None-0 point Total points for this nodule: 4 ACR Ti-Rads Category: TR4 Can be followed given that it measures less than 1.5 cm Nodule #3: This nodule in the right lobe is adjacent to nodule 2. Size: 0.8 cm x 0.4 cm x 1.0 cm Composition: Solid-2 points Echogenicity: Slightly hypoechoic-2 points Shape: Wider than taller- 0 points Margin: Smooth-0 points Echogenic Foci: None-0 points Total points for this nodule: 4 ACR Ti-Rads Category: 4. This nodule can be followed given that it m easures less than 1 cm. LEFT THYROID LOBE: This is a new nodule located inferiorly in the left lobe, having somewhat similar appearance to the d ominant nodule in the inferior aspect of the right lobe. Nodule #1 Size: 1.1 cm x 0.9 cm x 0.9 cm Composition: Mixed xynbt-eaownw-6 point Echogenicity: Solid components of this nodule are isoechoic to surrounding parenchyma-1 point Shape: Not taller than wider-0 point Margin: Smooth-0 points located inferiorly but without extrathyroidal extension-0 points Echogenic Foci: Punctate echogenic foci noted-3 points Total points for this nodule: 5 ACR Ti-Rads Category: 4 This nodule can be followed given that it is less than 1.5 cm size Nodule #2 There is a small benign colloid cyst seen at the mid level of the left lobe. Total Points for this nodule: 0 ACR Ti-Rads Category: 0 ISTHMUS: There are no significant nodules in the isthmus LYMPH NODES: There is no significant adenopathy. IMPRESSION: 1. There is a new mixed solid cystic nodule in the inferior aspect of the left thyroid lobe as descri bed above. Maximum size measurement is less than 1.5 cm and therefore this TiRads 4 nodule can be fo llowed in 6 months. 2. The dominant nodule in the inferior aspect of the right lobe which is the nodule which underwent F NA me in 2007 has slightly increased in size, presently with a maximum measurement of 3.3 cm (cranioc audal length) compared to the prior maximum measurement of 2.8 cm approximately 3 years ago. Recomme nd six-month follow-up of this nodule also. 3. There is no significant lymphadenopathy. DATA REPOSITORY:
== END 2020-11-08 02:28 ==
PROVIDERS: PCP Nurse Practitioner Adult Health; Visit Provider Otolaryngology
DX: E04.2 Nontoxic multinodular goiter (principal)
CPT/HCPCS: 76536

== ENCOUNTER 2020-11-21 19:41 | Outpatient (REF) | payer OTHER, SELFPAY | END 2020-11-21 19:42 | disposition home or self-care (01) | LOC: NCHCN 19:41 | PROVIDERS: PCP Nurse Practitioner Adult Health; Visit Provider Nurse Practitioner Adult Health | DX: R30.0 Dysuria (principal) | CPT/HCPCS: 87086 ==

== ENCOUNTER 2020-12-12 02:33 | Outpatient (CLI) | payer OTHER, SELFPAY ==
--- NOTE | 2020-12-12 06:45 | DI.MAMMO_ITS ---
Exam(s) MAMMO SCREENING EXAM: MAMMO SCREENING CLINICAL HISTORY: screening,Z12.39. TECHNIQUE: Bilateral full field digital CC and MLO mammographic images were obtained with 3D tomosyn thesis and utilizing computer aided detection (CAD). COMPARISON: Prior mammograms dating back to 2012, the most recent being December 2019. FINDINGS: There are no CAD designations. There are no new spiculated masses nor malignant appearing microcalcification groups. Small benign-appearing the upper-outer quadrant of the right breast are unchanged, consistent with be nign lymph nodes. There is no significant architectural distortion nor skin thickening-retraction. IMPRESSION: No radiographic evidence of malignancy. BI-RADS Category 1 - Negative Breast Density - Category B - Scattered areas of fibroglandular density Breast density Category C or D implies that the patient has dense breast tissue. Dense breast tissue can make it harder to find cancer on a mammogram. Dense breast tissue is also associated with an incr eased risk of breast cancer. This information about the result of the mammogram report was provided to the patient to raise their awareness. Use this report when you speak with the patient about their risks for breast cancer, which includes their family history. At that time, you may recommend additional screening tests (Ultrasoun d or MRI) as these tests may add significant information. A negative radiographic report should not delay biopsy if a dominant or clinically suspicious mass is present. Up to ten percent of cancers are not identified on mammography. A negative report may reinforce clinical impression. Adenosis and dense breasts may obscure an underlying neoplasm. False positive reports average 6 to 10%. Patient will receive a letter notifying them of these results.
== END 2020-12-12 02:53 ==
PROVIDERS: PCP Nurse Practitioner Adult Health; Visit Provider Nurse Practitioner Adult Health
DX: Z12.31 Encounter for screening mammogram for malignant neoplasm of breast (principal)
CPT/HCPCS: 77063; 77067

== ENCOUNTER 2020-12-12 04:13 | Outpatient (CLI) | payer OTHER, SELFPAY ==
[2020-12-12 07:28] LABS: Abs Immature Grans 0.02 10^3/uL (0.0-0.06); Absolute Basophil Count 0.06 10^3/uL (0.0-0.2); Absolute Eosinophil Count 0.22 10^3/uL (0.0-0.7); Absolute Lymphocyte Count 1.42 10^3/uL (1.2-3.4); Absolute Monocyte Count 0.59 10^3/uL (0.1-0.8); Absolute Neutrophil Count 4.35 10^3/uL (1.2-6.7); Basophils % 0.9; Eosinophils % 3.3; HCT 38.4 % (36.0-46.0); HGB 11.9 g/dL (11.2-15.7); Immature Grans % 0.3; Lymphocytes % 21.3; MCH 27.8 pg (27.0-33.0); MCV 89.7 fL (80-95); MPV 9.7 fL (8.0-11.0); Monocytes % 8.9; Neutrophils % 65.3; Nucleated RBC 0 %; Platelet Count 324 10^3/uL (130-400); RBC 4.28 10^6/uL (3.93-5.22); RDW 12.9 % (11.7-14.6); RDW-SD 42.4 fL; WBC 6.66 10^3/uL (4.4-10.8)
[2020-12-12 07:34] LABS: ESR 28 mm/hr (0-30)
[2020-12-12 09:29] LABS: ALT 28 U/L (14-59); AST 25 U/L (15-37); Albumin 3.6 g/dL (3.4-5.0); Alkaline Phosphatase 91 U/L (46-116); Anion Gap 13.4 mmol/L (3-11); BUN 14 mg/dL (7-18); Bilirubin, Total 0.2 mg/dL (0.2-1.0); CO2 19.6 mmol/L (21.0-32.0); CREATININE 1.2 mg/dL (0.55-1.02); Calcium 8.6 mg/dL (8.5-10.1); Calculated LDL 143 mg/dL (<100); Chloride 108 mmol/L (98-107); Cholesterol 229 mg/dL (<200); Estimated GFR 47.18 (mL/min/1.73m2); Folate 7.1 ng/mL (8.6-20.0); Glucose 94 mg/dL (74-106); HDL Cholesterol 65 mg/dL (40-60); Potassium 4.4 mmol/L (3.5-5.1); Sodium 141 mmol/L (136-145); TSH (W/Ref FT4) 2.26 uIU/mL (0.36-3.74); Total Protein 6.8 g/dL (6.4-8.2); Triglyceride 106 mg/dL (<150); Vitamin B12 399 pg/mL (193-986)
[2020-12-12 17:07] LABS: Rheumatoid Factor <8.6 IU/mL (<12.0)
[2020-12-12 18:47] LABS: HIV-1/2 Ag & Ab Screen Negative (Negative)
[2020-12-12 18:53] LABS: Hepatitis C Ab w Rflx HCV PCR Negative (Negative)
== END 2020-12-12 04:14 | disposition home or self-care (01) ==
LOC: LBO 04:13
PROVIDERS: PCP Nurse Practitioner Adult Health; Visit Provider Nurse Practitioner Adult Health
DX: E04.2 Nontoxic multinodular goiter; Z11.4 Encounter for screening for human immunodeficiency virus [HIV]; Z11.59 Encounter for screening for other viral diseases; Z13.1 Encounter for screening for diabetes mellitus; Z13.220 Encounter for screening for lipoid disorders; Z51.81 Encounter for therapeutic drug level monitoring; R52 Pain, unspecified; R70.0 Elevated erythrocyte sedimentation rate; R53.83 Other fatigue
CPT/HCPCS: 36415; 80053; 80061; 85652; 86803; 87389; 82607; 82746; 84443; 85025; 86140; 86431

== ENCOUNTER 2021-10-26 16:30 | Outpatient (REF) | payer OTHER, SELFPAY ==
[2021-10-26 18:01] LABS: Bilirubin Negative (Negative); Blood Large (Negative); Clarity Sl Cloudy (Clear); Glucose Negative (Negative); Ketones Negative (Negative); Leukocyte Esterase Large (Negative); Nitrite Positive (Negative); Urobilinogen 0.2 EU/dL (Up TO 0.2)
[2021-10-26 18:33] LABS: Bacteria Few HPF (Negative); Epithelial Cells Negative HPF (Negative); Other Cells Moderate Renal (Negative); RBC 0-2 HPF (0-2); WBC >50 HPF (0-5)
[2021-10-26 18:34] LABS: C & S Indicated? Yes; Crystals Negative HPF (Negative); Mucus Negative (Negative)
== END 2021-10-26 16:31 | disposition home or self-care (01) ==
LOC: LBN 16:30
PROVIDERS: PCP Nurse Practitioner Adult Health; Visit Provider Nurse Practitioner Family
DX: N39.0 Urinary tract infection, site not specified (principal)
CPT/HCPCS: 81003; 81015; 87086

== ENCOUNTER 2021-10-29 04:02 | Outpatient (CLI) | payer OTHER, SELFPAY ==
[2021-10-29 11:51] LABS: BUN 11 mg/dL (7-18); CREATININE 1.1 mg/dL (0.55-1.02); Chloride 106 mmol/L (98-107); Estimated GFR 51.96 (mL/min/1.73m2); Glucose 89 mg/dL (74-106); Potassium 3.7 mmol/L (3.5-5.1); Sodium 138 mmol/L (136-145)
== END 2021-10-29 04:03 | disposition home or self-care (01) ==
LOC: LBO 04:02
PROVIDERS: PCP Nurse Practitioner Adult Health; Visit Provider Nurse Practitioner Adult Health
DX: E66.01 Morbid (severe) obesity due to excess calories (principal); Z68.41 Body mass index [BMI] 40.0-44.9, adult; Z51.81 Encounter for therapeutic drug level monitoring
CPT/HCPCS: 36415; 80048

== ENCOUNTER 2022-05-16 00:45 | Outpatient (CLI) | payer OTHER, MEDICAID, SELFPAY ==
--- NOTE | 2022-05-16 12:50 | DI.MAMMO_ITS ---
Exam(s) MAMMO SCREENING EXAM: MAMMO SCREENING CLINICAL HISTORY: screening,z12.39 TECHNIQUE: Bilateral full field digital CC and MLO mammographic images were obtained with 3D tomosyn thesis and utilizing computer aided detection (CAD). COMPARISON: Available for comparison. FINDINGS: Masses/Architectural Distortion: There is a 1.1 cm partially obscured nodule in the upper central lef t breast. Microcalcifications: No suspicious pleomorphic-type are seen. Skin Thickening/Nipple Retraction: None. IMPRESSION: 1. 1.1 cm nodule in the upper central left breast approximately 8 cm from the nipple. 2. This area should be further evaluated with spot compression view and a whole left breast ultrasoun d. BI-RADS Category 0 - Assessment Incomplete: Need additional imaging evaluation Breast Density - Category B - Scattered areas of fibroglandular density Breast density category C or D implies that the patient has dense breast tissue. Dense breast tissue is very common and is not abnormal but dense breast tissue can make it harder to find cancer on a ma mmogram. Also, dense breast tissue may increase their breast cancer risk. This information about the result of the mammogram report was provided to the patient to raise their awareness. Use this report when you speak with the patient about their risks for breast cancer, which includes their family hist ory. At that time, you may recommend for more screening tests (Ultrasound or MRI) as they might be us eful based on their risk. A negative radiographic report should not delay biopsy if a dominant or clinically suspicious mass is present. Up to ten percent of cancers are not identified on mammography. A negative report may reinforce clinical impression. Adenosis and dense breasts may obscure an underlying neoplasm. False positive reports average 6 to 10%. Patient will receive a letter notifying them of these results.
== END 2022-05-16 01:05 ==
PROVIDERS: PCP Nurse Practitioner Adult Health; Visit Provider Nurse Practitioner Adult Health
DX: Z12.31 Encounter for screening mammogram for malignant neoplasm of breast (principal); R92.8 Other abnormal and inconclusive findings on diagnostic imaging of breast
CPT/HCPCS: 77063; 77067

== ENCOUNTER 2022-05-27 01:20 | Outpatient (CLI) | payer MEDICAID, SELFPAY ==
--- NOTE | 2022-05-27 | DI.US_ITS ---
Exam(s) MG MAMMO SCREEN CALL BACK UNI US BREAST LT LIMITED EXAM: MG MAMMO SCREEN CALL BACK UNI and U/S breast LT limited CLINICAL HISTORY: NODULE UPPER CENTRAL LEFT BREAST, ABNL R92.8. TECHNIQUE: Craniocaudal and mediolateral oblique Full Field Digital Mammography views of the left br east with Computer Aided Diagnosis followed by Tomosynthesis and left breast ultrasound. COMPARISON: Comparison is made with prior examinations. FINDINGS: Mammography/Tomosynthesis: Masses/Architectural Distortion: The well-circumscribed nodule at the 12 o'clock position of the left breast is again seen. Microcalcifictions: No suspicious pleomorphic-type are seen. Skin Thickening/Nipple Retraction: None. Limited left breast US: Echotexture: Normal appearance of the glandular tissue. Shadowing: No suspicious foci. Cyst: A 1 x 0.6 x 1 cm simple cyst is seen at the 12 o'clock position of the left breast. This would correspond to the mammographic abnormality. An additional simple cyst is seen at the 1 o'clock posi tion measuring 0.8 x 0.3 x 0.7 cm. Solid lesions: None seen. Ductal dilation: None. IMPRESSION: 1. No evidence of malignancy is noted. 2. Unless there is more urgent need, follow-up screening mammography is recommended, as per [place] [employer] guidelines. 3. The findings were discussed with the patient on the date of the examination. BI-RADS Category 2 - Benign Findings Breast Density - Category B - Scattered areas of fibroglandular density Breast density Category C or D implies that the patient has dense breast tissue. Dense breast tissue can make it harder to find cancer on a mammogram. Dense breast tissue is also associated with an incr eased risk of breast cancer. This information about the result of the mammogram report was provided to the patient to raise their awareness. Use this report when you speak with the patient about their risks for breast cancer, which includes their family history. At that time, you may recommend additional screening tests (Ultrasoun d or MRI) as these tests may add significant information. A negative radiographic report should not delay biopsy if a dominant or clinically suspicious mass is present. Up to ten percent of cancers are not identified on mammography. A negative report may reinforce clinical impression. Adenosis and dense breasts may obscure an underlying neoplasm. False positive reports average 6 to 10%. Patient will receive a letter notifying them of these results.
== END 2022-05-27 01:40 ==
LOC: DI 01:20
PROVIDERS: PCP Nurse Practitioner Adult Health; Visit Provider Nurse Practitioner Adult Health
DX: Z12.31 Encounter for screening mammogram for malignant neoplasm of breast (principal); R92.8 Other abnormal and inconclusive findings on diagnostic imaging of breast
CPT/HCPCS: 76642; 77063; 77067